=== PATIENT | male | born 1950 | race Caucasian/White ===

== ENCOUNTER 2021-12-19 13:30 | Inpatient (IN) | payer MEDICARE, OTHER ==
[~2021-12-19] VITALS: Ht 182.9 cm; Wt 59.9 kg
[2021-12-19] MEDS ORDERED: DOXYCYCLINE MO100 MG PO (15:01)
[2021-12-19] MEDS ORDERED: HYDROCODON-ACE1 EAC2 PO (15:03)
[2021-12-19] MEDS ORDERED: ATORVASTATIN CA40 MG PO (15:03)
[2021-12-19] MEDS ORDERED: PROAIR HFA8.5 GM INH (15:03)
[2021-12-19] MEDS ORDERED: AMIODARONE HCL200 MG PO (15:03)
[2021-12-19] MEDS ORDERED: LISINOPRIL2.5 MG PO (15:04)
[2021-12-19] MEDS ORDERED: BUMETANIDE1 MG PO (15:04)
[2021-12-19] MEDS ORDERED: METOPROLOL TART50 MG PO (15:05)
[2021-12-19] MEDS ORDERED: POTASSIUM CHLO10 ME1 PO (15:05)
[2021-12-19] MEDS ORDERED: ASPIRIN EC81 MG PO (15:05)
[2021-12-19 15:13] LABS: HEMOGLOBIN 8.5 gm/dl (14.0-17.5); RED BLOOD COUNT 2.61 M/UL (4.20-5.50); WHITE BLOOD COUNT 7.6 K/UL (4.5-11.0)
[2021-12-19 15:54] LABS: BUN/CREATININE RATIO 28 (0-10)
[2021-12-20 05:17] LABS: RED BLOOD COUNT 2.52 M/UL (4.20-5.50); WHITE BLOOD COUNT 5.8 K/UL (4.5-11.0)
[2021-12-20 05:59] LABS: BUN/CREATININE RATIO 36 (0-10)
[2021-12-21 02:46] LABS: HEMOGLOBIN 9.2 gm/dl (14.0-17.5); WHITE BLOOD COUNT 5.5 K/UL (4.5-11.0)
[2021-12-21 02:48] LABS: RED BLOOD COUNT 2.86 M/UL (4.20-5.50)
[2021-12-21 03:11] LABS: BUN/CREATININE RATIO 33 (0-10)
[2021-12-22 05:55] LABS: HEMOGLOBIN 9.8 gm/dl (14.0-17.5); RED BLOOD COUNT 2.99 M/UL (4.20-5.50)
[2021-12-22 05:59] LABS: BUN/CREATININE RATIO 44 (0-10)
[2021-12-23 05:23] LABS: HEMOGLOBIN 9.4 gm/dl (14.0-17.5); RED BLOOD COUNT 2.94 M/UL (4.20-5.50)
[2021-12-23 05:26] LABS: WHITE BLOOD COUNT 10.4 K/UL (4.5-11.0)
[2021-12-23 05:51] LABS: BUN/CREATININE RATIO 41 (0-10)
[2021-12-24 05:30] LABS: HEMOGLOBIN 9.3 gm/dl (14.0-17.5); RED BLOOD COUNT 2.87 M/UL (4.20-5.50)
[2021-12-24 05:42] LABS: BUN/CREATININE RATIO 38 (0-10)
[2021-12-24 06:07] LABS: WHITE BLOOD COUNT 5.3 K/UL (4.5-11.0)
[2021-12-25 04:52] LABS: HEMOGLOBIN 8.5 gm/dl (14.0-17.5); RED BLOOD COUNT 2.7 M/UL (4.20-5.50); WHITE BLOOD COUNT 6.4 K/UL (4.5-11.0)
[2021-12-25 05:13] LABS: BUN/CREATININE RATIO 42 (0-10)
[2021-12-26 05:08] LABS: HEMOGLOBIN 8.8 gm/dl (14.0-17.5); RED BLOOD COUNT 2.75 M/UL (4.20-5.50)
[2021-12-26 05:12] LABS: BUN/CREATININE RATIO 36 (0-10)
[2021-12-26 05:16] LABS: WHITE BLOOD COUNT 8.7 K/UL (4.5-11.0)
--- NOTE | 2021-12-26 10:58 | NUR ---
GAVE REPORT TO NURSE RECIEVING PT IN ROOM 3040
--- NOTE | 2021-12-26 16:49 | NUR ---
1630 Thoracentesis done at bedside per Dr Sheffield. 650ml of clear yellow fluid drained. Patient tolerated well. Stat chest xray ordered. Flluid samples sent to lab for various tests.
[2021-12-26 19:11] LABS: AMYLASE, BODY FLUID 18 U/L; LDH, BODY FLUID 67 U/L; TOTAL PROTEIN, BODY FLUID 1.4 gm/dL
[2021-12-26 19:22] LABS: MONONUCLEAR CELLS 76 (75-100); POLYMORPHONUCLEAR % 24 (0-25)
[2021-12-27 06:49] LABS: BUN/CREATININE RATIO 27 (0-10)
[2021-12-27 06:50] LABS: HEMOGLOBIN 9.1 gm/dl (14.0-17.5); RED BLOOD COUNT 2.88 M/UL (4.20-5.50); WHITE BLOOD COUNT 9.6 K/UL (4.5-11.0)
[2021-12-28 03:36] LABS: HEMOGLOBIN 9.4 gm/dl (14.0-17.5); RED BLOOD COUNT 2.95 M/UL (4.20-5.50); WHITE BLOOD COUNT 10.7 K/UL (4.5-11.0)
[2021-12-28 04:02] LABS: BUN/CREATININE RATIO 25 (0-10)
[2021-12-29 07:06] LABS: BUN/CREATININE RATIO 25 (0-10)
[2021-12-30 03:35] LABS: HEMOGLOBIN 9.7 gm/dl (14.0-17.5); RED BLOOD COUNT 3.01 M/UL (4.20-5.50); WHITE BLOOD COUNT 11.3 K/UL (4.5-11.0)
[2021-12-30 03:53] LABS: BUN/CREATININE RATIO 23 (0-10)
--- NOTE | 2022-01-01 09:15 | NUR ---
PT C/O INCREASED SHORTNESS OF AIR, HIS HEART IS IN AFIB RVR WITH A RATE OF 162 DR HYMAN NOTIFIED AND ORDERS RECEIVED FOR CARDIZEM, PCU BED AND DIGOXIN.
--- NOTE | 2022-01-01 10:15 | NUR ---
AWAITING PCU BED RATE IS AT 117
--- NOTE | 2022-01-01 11:30 | NUR ---
AWAITING PCU BED.
[2022-01-01 14:02] LABS: BUN/CREATININE RATIO 50 (0-10)
[2022-01-02 04:04] LABS: BUN/CREATININE RATIO 52 (0-10)
[2022-01-02 04:53] LABS: HEMOGLOBIN 9.4 gm/dl (14.0-17.5); RED BLOOD COUNT 2.87 M/UL (4.20-5.50); WHITE BLOOD COUNT 10.4 K/UL (4.5-11.0)
[2022-01-03 03:24] LABS: HEMOGLOBIN 9.9 gm/dl (14.0-17.5); RED BLOOD COUNT 3.11 M/UL (4.20-5.50); WHITE BLOOD COUNT 10.2 K/UL (4.5-11.0)
[2022-01-03 03:48] LABS: BUN/CREATININE RATIO 57 (0-10)
--- NOTE | 2022-01-03 19:10 | NUR ---
PT WAS NONCOMPLIANT WITH [employer] AND WANTED IT REMOVED.
[2022-01-04 03:22] LABS: HEMOGLOBIN 9.6 gm/dl (14.0-17.5); RED BLOOD COUNT 2.99 M/UL (4.20-5.50)
[2022-01-04 03:50] LABS: BUN/CREATININE RATIO 43 (0-10)
[2022-01-05 02:48] LABS: BUN/CREATININE RATIO 30 (0-10)
[2022-01-05 08:41] LABS: HEMOGLOBIN 8.6 gm/dl (14.0-17.5)
[2022-01-05 08:43] LABS: RED BLOOD COUNT 2.63 M/UL (4.20-5.50)
--- NOTE | 2022-01-05 10:36 | NUR ---
OFFERED TO REMOVE PATIENT CATHETER. PATIENT REFUSES TO HAVE IT REMOVED TODAY
[2022-01-06 09:08] LABS: HEMOGLOBIN 8.3 gm/dl (14.0-17.5); RED BLOOD COUNT 2.61 M/UL (4.20-5.50); WHITE BLOOD COUNT 8.8 K/UL (4.5-11.0)
[2022-01-06 09:28] LABS: BUN/CREATININE RATIO 30 (0-10)
[2022-01-07 04:49] LABS: HEMOGLOBIN 8.3 gm/dl (14.0-17.5); RED BLOOD COUNT 2.57 M/UL (4.20-5.50); WHITE BLOOD COUNT 6.9 K/UL (4.5-11.0)
[2022-01-07 05:03] LABS: BUN/CREATININE RATIO 40 (0-10)
[2022-01-08 02:34] LABS: HEMOGLOBIN 8.9 gm/dl (14.0-17.5); RED BLOOD COUNT 2.76 M/UL (4.20-5.50); WHITE BLOOD COUNT 8.4 K/UL (4.5-11.0)
[2022-01-08 02:55] LABS: BUN/CREATININE RATIO 30 (0-10)
[2022-01-09 02:49] LABS: HEMOGLOBIN 8.2 gm/dl (14.0-17.5); RED BLOOD COUNT 2.54 M/UL (4.20-5.50); WHITE BLOOD COUNT 8.7 K/UL (4.5-11.0)
[2022-01-09 03:16] LABS: BUN/CREATININE RATIO 37 (0-10)
[2022-01-10 08:30] LABS: HEMOGLOBIN 7.8 gm/dl (14.0-17.5); RED BLOOD COUNT 2.4 M/UL (4.20-5.50); WHITE BLOOD COUNT 6.6 K/UL (4.5-11.0)
[2022-01-10 08:59] LABS: BUN/CREATININE RATIO 36 (0-10)
[2022-01-11 04:21] LABS: HEMOGLOBIN 8.7 gm/dl (14.0-17.5); WHITE BLOOD COUNT 6.9 K/UL (4.5-11.0)
[2022-01-11 04:22] LABS: RED BLOOD COUNT 2.72 M/UL (4.20-5.50)
[2022-01-11 04:56] LABS: BUN/CREATININE RATIO 35 (0-10)
[2022-01-11] MEDS ORDERED: LOTRIMIN CREAM15 GM TOP (12:44)
[2022-01-11] MEDS ORDERED: DITROPAN 5 MG TA5 MG PO (12:44)
[2022-01-11] MEDS ORDERED: ELIQUIS 5 MG TAB5 MG PO (12:44)
[2022-01-11] MEDS ORDERED: BUDESONIDE0.5 MG/2 M NEB (12:44)
[2022-01-11] MEDS ORDERED: FERROUS GLUCON324 M1 PO (12:44)
[2022-01-11] MEDS ORDERED: FUROSEMIDE40 MG PO (12:44)
[2022-01-11] MEDS ORDERED: DOCUSATE SODIU100 MG PO (12:44)
[2022-01-11] MEDS ORDERED: POLYETHYLENE GL17 GM PO (12:44)
[2022-01-11] MEDS ORDERED: PROTONIX 40 MG40 M1 PO (12:44)
[2022-01-11] MEDS ORDERED: DIGOXIN125 MCG PO (12:44)
[2022-01-11] MEDS ORDERED: TOPROL XL50 MG PO (12:44)
[2022-01-11] MEDS ORDERED: ROXICODONE TAB 55 MG PO (12:54)
[2022-01-11] MEDS ORDERED: ZYVOX600 MG PO ×2 (12:58→13:03)
[2022-01-11] MEDS ORDERED: IPRAT-ALBUT 0.5-3 ML INH (13:03)
--- NOTE | 2022-01-11 15:46 | NUR ---
REPORT CALLED TO [facility]
== END 2022-01-11 17:11 | disposition home health service (06) | DRG 871 ==
LOC: CCU 13:30 → MED SURG 4 13:30 → PROG CARE 13:30 → CCU 13:47 → MED SURG 4 12-26 10:31 → PROG CARE 01-01 14:58 → CDU 01-02 09:49 → PROG CARE 01-11 17:11
PROVIDERS: Internal Medicine; Internal Medicine Cardiovascular Disease; Internal Medicine Pulmonary Disease; Physician Assistant; ADMIT Internal Medicine
PROC: 3E043XZ Introduction of Vasopressor into Central Vein, Percutaneous Approach (ICD-10-PCS; principal; 2021-12-19)
PROC: 3E03329 Introduction of Other Anti-infective into Peripheral Vein, Percutaneous Approach (ICD-10-PCS; 2021-12-19)
PROC: 0BH17EZ Insertion of Endotracheal Airway into Trachea, Via Natural or Artificial Opening (ICD-10-PCS; 2021-12-19)
PROC: 5A1945Z Respiratory Ventilation, 24-96 Consecutive Hours (ICD-10-PCS; 2021-12-19)
PROC: 0DH67UZ Insertion of Feeding Device into Stomach, Via Natural or Artificial Opening (ICD-10-PCS; 2021-12-20)
PROC: 3E0G76Z Introduction of Nutritional Substance into Upper GI, Via Natural or Artificial Opening (ICD-10-PCS; 2021-12-20)
PROC: B24BZZZ Ultrasonography of Heart with Aorta (ICD-10-PCS; 2021-12-20)
PROC: 5A09357 Assistance with Respiratory Ventilation, Less than 24 Consecutive Hours, Continuous Positive Airway Pressure (ICD-10-PCS; 2021-12-20)
PROC: 5A0935A Assistance with Respiratory Ventilation, Less than 24 Consecutive Hours, High Flow/Velocity Cannula (ICD-10-PCS; 2021-12-21)
PROC: 5A0955A Assistance with Respiratory Ventilation, Greater than 96 Consecutive Hours, High Flow/Velocity Cannula (ICD-10-PCS; 2021-12-23)
PROC: 0W9B3ZZ Drainage of Left Pleural Cavity, Percutaneous Approach (ICD-10-PCS; 2021-12-26)
PROC: BB4BZZZ Ultrasonography of Pleura (ICD-10-PCS; 2021-12-26)
PROC: 5A0935A Assistance with Respiratory Ventilation, Less than 24 Consecutive Hours, High Flow/Velocity Cannula (ICD-10-PCS; 2021-12-28)
PROC: 5A0945A Assistance with Respiratory Ventilation, 24-96 Consecutive Hours, High Flow/Velocity Cannula (ICD-10-PCS; 2021-12-29)
DX: A41.81 Sepsis due to Enterococcus (principal); J15.8 Pneumonia due to other specified bacteria; R57.0 Cardiogenic shock; I50.23 Acute on chronic systolic (congestive) heart failure; J15.1 Pneumonia due to Pseudomonas; R65.21 Severe sepsis with septic shock; I21.4 Non-ST elevation (NSTEMI) myocardial infarction; J96.21 Acute and chronic respiratory failure with hypoxia; J96.22 Acute and chronic respiratory failure with hypercapnia; Z16.12 Extended spectrum beta lactamase (ESBL) resistance; J44.1 Chronic obstructive pulmonary disease with (acute) exacerbation; J44.0 Chronic obstructive pulmonary disease with (acute) lower respiratory infection; I31.3 Pericardial effusion (noninflammatory); K56.7 Ileus, unspecified; E44.0 Moderate protein-calorie malnutrition; Z68.1 Body mass index [BMI] 19.9 or less, adult; I47.1 Supraventricular tachycardia; N17.9 Acute kidney failure, unspecified; J90 Pleural effusion, not elsewhere classified; E87.1 Hypo-osmolality and hyponatremia; Z20.822 Contact with and (suspected) exposure to COVID-19; I49.1 Atrial premature depolarization; I11.0 Hypertensive heart disease with heart failure; D53.9 Nutritional anemia, unspecified; I25.10 Atherosclerotic heart disease of native coronary artery without angina pectoris; E78.5 Hyperlipidemia, unspecified; G89.4 Chronic pain syndrome; I44.7 Left bundle-branch block, unspecified; F17.290 Nicotine dependence, other tobacco product, uncomplicated; I48.0 Paroxysmal atrial fibrillation; I25.5 Ischemic cardiomyopathy; I27.20 Pulmonary hypertension, unspecified; R53.81 Other malaise; E87.6 Hypokalemia; J98.4 Other disorders of lung; Z79.01 Long term (current) use of anticoagulants; Z79.82 Long term (current) use of aspirin; Z86.711 Personal history of pulmonary embolism; Z87.820 Personal history of traumatic brain injury; Z95.1 Presence of aortocoronary bypass graft; Z88.1 Allergy status to other antibiotic agents; Z88.0 Allergy status to penicillin; T50.2X5A Adverse effect of carbonic-anhydrase inhibitors, benzothiadiazides and other diuretics, initial encounter
CPT/HCPCS: ECHO; 36415; 36600; 71045; 71046; 71250; 74018; 74230; 80048; 80053; 80162; 82150; 82550; 82553; 82803; 83540; 83550; 83615; 83735; 83880; 83986; 84132; 84157; 84484; 85025; 85027; 85730; 86140; 87040; 87070; 87077; 87081; 87186; 87205; 89051; 92526; 92610; 92611-GN; 93005; 93306; 94002; 94003; 94640; 94660; 94668; 94760; 97110-GP-CQ; 97116; 97116-GP-CQ; 97161; 97164; 97166; 97530; 97530-GP-CQ; 97535; J0153; J0456; J0696; J0713; J1160; J1644; J1940; J2185; J2270; J2405; J2704; J2930; J7030